=== PATIENT | male | born 1945 | race Caucasian/White ===

== ENCOUNTER → 2017-09-03 | Outpatient (CLI) | payer MEDICARE, OTHER ==
[~2017-09-03] MED LIST: AMARYL2 MG PO; ASPIR 8181 M1 PO; GLUCOPHAGE1000 MG PO; LEVOTHYROXIN0.075 MG PO; PRINIVIL40 MG PO
== END ==
LOC: M.ULTRA 09:30
DX: I65.23 Occlusion and stenosis of bilateral carotid arteries (principal); I25.10 Atherosclerotic heart disease of native coronary artery without angina pectoris; I25.5 Ischemic cardiomyopathy; J96.01 Acute respiratory failure with hypoxia; E87.1 Hypo-osmolality and hyponatremia; E44.1 Mild protein-calorie malnutrition; I13.0 Hypertensive heart and chronic kidney disease with heart failure and stage 1 through stage 4 chronic kidney disease, or unspecified chronic kidney disease; E11.22 Type 2 diabetes mellitus with diabetic chronic kidney disease; I50.23 Acute on chronic systolic (congestive) heart failure; N18.3 Chronic kidney disease, stage 3 (moderate); E03.9 Hypothyroidism, unspecified; Z95.1 Presence of aortocoronary bypass graft

== ENCOUNTER → 2019-08-29 | Outpatient (CLI) | payer MEDICARE, OTHER | LOC: M.MRI 08:13 | DX: M47.816 Spondylosis without myelopathy or radiculopathy, lumbar region (principal); M47.818 Spondylosis without myelopathy or radiculopathy, sacral and sacrococcygeal region; M51.36 Other intervertebral disc degeneration, lumbar region; M48.061 Spinal stenosis, lumbar region without neurogenic claudication; M51.26 Other intervertebral disc displacement, lumbar region ==

== ENCOUNTER → 2019-10-03 | Outpatient (CLI) | payer MEDICARE, OTHER | LOC: M.LAB 13:47 | DX: E87.5 Hyperkalemia (principal) ==

== ENCOUNTER → 2020-10-11 | Outpatient (CLI) | payer MEDICARE, OTHER ==
[~2020-10-11] VITALS: Ht 167.6 cm; Wt 77.1 kg
[~2020-10-11] MED LIST changes: +ADULT LOW DOSE81 MG PO; -ASPIR 8181 M1 PO; +COREG6.25 MG PO; +LIPITOR40 MG PO; +LISINOPRIL2.5 MG PO; +SLOW FE142 MG PO; +SYNTHROID100 MC1 PO; +UNICOMPLEX M TA1 TA1 PO; +VITAMIN D3 PO; +VITCB500GO PO
[2020-10-11 10:51] VITALS: BP 152/68
[2020-10-11 10:55] LABS: HEMATOCRIT 38.9 % (42.0-52.0); HEMOGLOBIN 12.7 gm/dL (14.0-18.0); MCH 30.1 pg (26.0-34.0); MCHC 32.7 g/dL (28.0-37.0); MCV 92.2 fL (80.0-100.0); RBC 4.22 mil/uL (4.50-6.00); RDW-CV 13.4 % (10.5-14.5); WBC 8.4 thou/uL (4.0-11.0)
[2020-10-11 11:04] LABS: CALCIUM 9.2 mg/dL (8.5-10.1); POTASSIUM 4.7 mmol/L (3.5-5.1)
[2020-10-11 11:09] LABS: TOTAL BILIRUBIN 0.6 mg/dL (<0.1-1.0); TOTAL PROTEIN 7.7 g/dL (6.4-8.2)
[2020-10-11 12:09] VITALS: BP 150/81
[2020-10-11 12:55] VITALS: BP 158/79
[2020-10-11 13:36] VITALS: BP 140/66
--- NOTE | 2020-10-11 15:47 | EKG ---
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: : 1945 Requested By: Albert Soto Order Number: [id number] Reading MD: Eric Henao Measurements Intervals [place] Rate: 84 P: -37 VA: 276 QRS: -36 QRSD: 123 T: 2 QT: 384 QTc: 454 Interpretive Statements Sinus rhythm Prolonged VA interval Right bundle branch block Anterolateral infarct, age indeterminate Compared to ECG 08/22/2015 18:13:10 First degree AV block now present Right bundle-branch block now present Myocardial infarct finding still present Electronically Signed On 10-11-2020 15:47:13 CDT by Eric Henao [email or web address] <ELECTRONICALLY SIGNED> By: Eric Henao MD, [facility] 10/11/20 1547 1359 1359 Eric Henao MD, [facility] /EPI
--- NOTE | 2020-10-11 17:25 | CARD ---
[address] [address] CARDIAC CATH REPORT Name: BREANN HERNANDEZ Room: [facility]#: [id number] Admission: 10/11/20 Attend Phys: Eric Henao MD, F Discharge: Date of : 41 Report #: [id number] THIS REPORT FOR: cc: Festus Levy Bradley L. DO Liston, Michael J. MD [facility] ~ APPROVED REPORT Study performed: 10/11/2020 11:23:15 Patient Status: Out-Patient Room #: Event Personnel: Ovidio Pereira RTR Monitor, Jeremias Esteves ScrubCharles Michael Science Technicians, Elizabet Gomez RN RN Exam: Dual-chamber ICD placement Indications: Primary prevention. The patient is a 74 year-old male with a history of Ischemic cardiomyopathy. Patient Info Last EF%: 32% Date: NYHA Heart Class: II Reason for implant: Primary prevention Intraoperative Conscious Sedation Sedation start time: 1130 Case end Time: 1152 Fentanyl 25 mcg Versed 1 mg Implanted Devices: Biotronik Acticor 7 BRT DX, model #895398, serial #[id number] dual-chamber pacing ICD generator. Biotronik Plexa ProMRI S DX 65/15, model #004199, serial #[id number] pacing defibrillator lead. Procedure After informed consent was obtained the area of the left chest was prepped and draped in sterile fashion. Local anesthesia was achieved with 1% lidocaine. Next after an incision was made over the left pectoralis area a device pocket was formed using electrocautery and blunt dissection. Next the left subclavian vein was accessed with a micropuncture kit. A 7 Icelandic tear-away introducer was advanced over the guidewire. A pacing defibrillator lead was then advanced to secure position within the right ventricular apex. The lead was actively fixed. Thresholds [place] [address] CARDIAC CATH REPORT Name: BREANN HERNANDEZ Room: [facility]#: [id number] Admission: 10/11/20 Attend Phys: Eric Henao MD, F Discharge: Date of : 41 Report #: [id number] satisfactory. After adequate slack was ensured the lead was then secured within the device pocket using the designated cuff and 0 silk suture. The device pocket was then flushed with antibiotic solution. Next the pacing defibrillator generator was attached to the lead and the lead and device placed within the device pocket. The device pocket was flushed with antibiotic solution. The deep tissues were closed with interrupted stitches of 2-0 Vicryl. The skin incision was then closed with a single subcuticular stitch of 4-0 Vicryl. Several Steri-Strips were then placed across the incision. A sterile Telfa dressing was then covered with a Tegaderm. The patient tolerated procedure well without complication. Complications The patient tolerated the procedure well and there were no complications associated with the procedure. Findings The sensed R wave was 20 mV. RV pacing impedance was 1.2 V at 0.40 ms. RV pacing impedance was 762 ohms. Conclusion 1. Ischemic cardiomyopathy. 2. Successful placement of a pacing ICD for primary prevention. Recommendations 1. Follow-up site check in 1 week. 2. Follow-up device interrogation in 1 to 2 months. <ELECTRONICALLY SIGNED> By: Albert Soto MD, FACC 10/11/20 1725 1725 1725Michael Kim Soto MD, FACC /INF
== END | disposition home or self-care (01) ==
LOC: M.CL 10:14
PROVIDERS: ATTEND Internal Medicine Cardiovascular Disease
DX: I25.5 Ischemic cardiomyopathy (principal); I42.0 Dilated cardiomyopathy; I49.9 Cardiac arrhythmia, unspecified; I20.0 Unstable angina; I10 Essential (primary) hypertension; E11.9 Type 2 diabetes mellitus without complications; Z95.1 Presence of aortocoronary bypass graft; Z98.890 Other specified postprocedural states; Z79.899 Other long term (current) drug therapy

== ENCOUNTER → 2021-04-11 | Outpatient (CLI) | payer MEDICARE, OTHER ==
[2021-04-11 09:30] LABS: CALCIUM 9.2 mg/dL (8.5-10.1); CREATININE 1.6 mg/dL (0.6-1.3); POTASSIUM 5.6 mmol/L (3.5-5.1)
== END ==
LOC: M.LAB 09:05
PROVIDERS: ATTEND Nurse Practitioner
DX: E87.5 Hyperkalemia (principal)

== ENCOUNTER → 2021-04-18 | Outpatient (CLI) | payer MEDICARE, OTHER ==
[2021-04-18 10:14] LABS: CALCIUM 8.8 mg/dL (8.5-10.1); CREATININE 1.7 mg/dL (0.6-1.3); POTASSIUM 4.5 mmol/L (3.5-5.1)
== END ==
LOC: M.LAB 09:54
PROVIDERS: ATTEND Internal Medicine Cardiovascular Disease
DX: E87.5 Hyperkalemia (principal); N18.9 Chronic kidney disease, unspecified

== ENCOUNTER 2021-06-03 17:55 | Inpatient (IN) | payer MEDICARE, OTHER ==
[~2021-06-03] VITALS: Ht 167.6 cm; Wt 78.2 kg
[2021-06-03 18:13] VITALS: BP 90/47
[2021-06-03] MEDS ORDERED: METOLAZONE 2.52.5 M1 PO (18:27)
[2021-06-03] MEDS ORDERED: DEMADEX20 MG PO (18:28)
[2021-06-03 21:54] LABS: HEMATOCRIT 37.9 % (42.0-52.0); HEMOGLOBIN 11.8 gm/dL (14.0-18.0); MCH 28.6 pg (26.0-34.0); MCV 92.1 fL (80.0-100.0); MPV 9.1 fl. (7.2-11.1); NUCLEATED RBCS 0 /100WBC; PLATELET COUNT* 222 thou/uL (150-400); RBC 4.11 mil/uL (4.50-6.00); RDW-CV 16.2 % (10.5-14.5); WBC 11.3 thou/uL (4.0-11.0)
[2021-06-03 22:03] LABS: ANION GAP 30 mmol/L (7-16); BUN 66 mg/dL (7-18); CHLORIDE 93 mmol/L (98-107); CO2 13 mmol/L (21-32); GLUCOSE 42 mg/dL (70-99); POTASSIUM 5.7 mmol/L (3.5-5.1); SODIUM 136 mmol/L (136-145)
[2021-06-03 22:07] LABS: APTT 35.8 Seconds (25.0-31.3); INR 1.4; PROTIME 14.2 Seconds (9.20-11.50)
[2021-06-03 22:14] LABS: ALBUMIN 3.5 g/dL (3.4-5.0); ALKALINE PHOSPHATASE 64 U/L (46-116); NT-PRO BRAIN NAT PEPTIDE > 35000 pg/mL (<300); SGOT 18 U/L (15-37); SGPT 19 U/L (30-65); TOTAL BILIRUBIN 0.9 mg/dL (<0.1-1.0); TOTAL PROTEIN 7.2 g/dL (6.4-8.2)
[2021-06-03 22:20] LABS: ABSOLUTE LYMPHOCYTES 0.2 thou/uL (0.8-5.3); ABSOLUTE MONOCYTES 0.3 thou/uL (0.0-1.2); ABSOLUTE NEUTROPHILS 10.7 thou/uL (1.6-8.1)
[2021-06-03 22:22] LABS: ANISOCYTOSIS Occasional; PLATELET ESTIMATE ADEQUATE
[2021-06-04] VITALS (128 sets, daily range): BP systolic 43–145; BP diastolic 22–80
[2021-06-04 02:43] LABS: BE -21.8 mmol/L (-2 to +3)
[2021-06-04 02:46] LABS: PCO2 18.9 mmHg (35.0-45.0); pH 7.107 (7.340-7.450)
[2021-06-04 07:14] LABS: HEMATOCRIT 36.1 % (42.0-52.0); MCH 28.3 pg (26.0-34.0); MCHC 30.6 g/dL (28.0-37.0); MCV 92.6 fL (80.0-100.0); MPV 9.5 fl. (7.2-11.1); RBC 3.9 mil/uL (4.50-6.00); RDW-CV 16.4 % (10.5-14.5)
[2021-06-04 07:25] LABS: ALBUMIN 3.1 g/dL (3.4-5.0); CALCIUM 8.3 mg/dL (8.5-10.1); CREATININE 6.1 mg/dL (0.6-1.3); MAGNESIUM 1.9 mg/dL (1.8-2.4); POTASSIUM 5.6 mmol/L (3.5-5.1); TOTAL BILIRUBIN 0.9 mg/dL (<0.1-1.0); TOTAL PROTEIN 6.5 g/dL (6.4-8.2)
[2021-06-04 09:40] LABS: BE -16.5 mmol/L (-2 to +3); PCO2 25.6 mmHg (35.0-45.0)
[2021-06-04 09:43] LABS: PO2 254.1 mmHg (75.0-100.0); pH 7.202 (7.340-7.450)
--- NOTE | 2021-06-04 09:58 | EKG ---
[place] [address] ELECTROCARDIOGRAM REPORT Name: BREANN HERNANDEZ Room: [address] ADM IN .R.#: [id number] Admission: 06/04/21 Attend Phys: Efrem Menon, Discharge: Date of : 41 Date of Service: 06/03/21 2144 Report #: [id number] THIS REPORT FOR: //name// [facility] ED Test Date: 2021-06-03 Test Time: 21:44:06 Pat Name: BREANN HERNANDEZ Department: Room: [facility] Gender: M Continuous Drier Helper: : 1945 Requested By: Ana Hanks Order Number: [id number] MD: Kenny Duran Measurements Intervals [place] Rate: 79 P: 115 MD: 193 QRS: -21 QRSD: 171 T: 154 QT: 459 QTc: 527 Interpretive Statements Sinus rhythm Ventricular premature complex Left bundle branch block Since the prior tracing, no significant interval change Electronically Signed On 06-04-2021 9:57:47 TANK CAR MECHANIC by Kenny Duran [email or web address] <ELECTRONICALLY SIGNED> By: Kenny Duran MD, [facility] 06/04/21 0957 Kenny Duran MD, [facility] /EPI
--- NOTE | 2021-06-04 10:02 | EKG ---
[place] [address] ELECTROCARDIOGRAM REPORT Name: BREANN HERNANDEZ Judah Room: [address] ADM IN M.R.#: [id number] Admission: 06/04/21 Attend Phys: Efrem Menon, Discharge: Date of : 41 Date of Service: 06/04/2107 Report #: [id number] THIS REPORT FOR: //name// [facility] Test Date: 2021-06-04 Test Time: 06:07:26 Pat Name: BREANN HERNANDEZ Department: Room: [address] Gender: M Client Relations Associate: : 1945 Requested By: Ana Hanks Order Number: [id number] Danni MD: Kenny Duran Measurements Intervals [place] Rate: 83 P: 61 SC: 224 QRS: 11 QRSD: 161 T: 136 QT: 440 QTc: 517 Interpretive Statements Sinus rhythm Rare PVCs are noted Left bundle branch block Since the prior tracing, no significant interval changes noted Electronically Signed On 06-04-2021 10:01:51 WAFER MOUNTER by Kenny Duran [email or web address] <ELECTRONICALLY SIGNED> By: Kenny Duran MD, [facility] 06/04/21 1001 0607 0607 Kenny Duran MD, [facility] /EPI
[2021-06-04 10:26] LABS: BE -18.2 mmol/L (-2 to +3); PCO2 24.3 mmHg (35.0-45.0)
[2021-06-04 10:28] LABS: PO2 169.9 mmHg (75.0-100.0); pH 7.168 (7.340-7.450)
[2021-06-04 11:00] LABS: INR 1.6; PROTIME 16.5 Seconds (9.20-11.50)
[2021-06-04 11:07] LABS: ABSOLUTE BASOPHILS 0.1 thou/uL (0.0-0.2); ABSOLUTE LYMPHOCYTES 1.2 thou/uL (0.8-5.3); ABSOLUTE NEUTROPHILS 14.4 thou/uL (1.6-8.1); BASOPHILS 0.6 %; HEMATOCRIT 37.4 % (42.0-52.0); HEMOGLOBIN 11.5 gm/dL (14.0-18.0); LYMPHOCYTES 7.2 %; MCH 28.7 pg (26.0-34.0); MCHC 30.9 g/dL (28.0-37.0); MCV 93.1 fL (80.0-100.0); MONOCYTES 6.1 %; MPV 9.5 fl. (7.2-11.1); NUCLEATED RBCS 0 /100WBC; PLATELET COUNT* 251 thou/uL (150-400); POLYS 86.1 %; RBC 4.02 mil/uL (4.50-6.00); RDW-CV 16.6 % (10.5-14.5); WBC 16.8 thou/uL (4.0-11.0)
[2021-06-04 11:26] LABS: CALCIUM 8.7 mg/dL (8.5-10.1); CREATININE 5.8 mg/dL (0.6-1.3); POTASSIUM 5.9 mmol/L (3.5-5.1)
[2021-06-04 11:27] LABS: BE -18.8 mmol/L (-2 to +3); PCO2 22.3 mmHg (35.0-45.0)
[2021-06-04 11:33] LABS: pH 7.168 (7.340-7.450)
[2021-06-04 11:34] LABS: PO2 201.1 mmHg (75.0-100.0)
[2021-06-04 12:10] LABS: ALBUMIN 3.9 g/dL (3.4-5.0); TOTAL PROTEIN 6.6 g/dL (6.4-8.2)
[2021-06-04 12:31] LABS: BE -20.1 mmol/L (-2 to +3); PCO2 21.1 mmHg (35.0-45.0)
[2021-06-04 12:36] LABS: PO2 166.4 mmHg (75.0-100.0)
[2021-06-04 13:42] LABS: BE -21.1 mmol/L (-2 to +3); PCO2 21.6 mmHg (35.0-45.0)
[2021-06-04 13:51] LABS: pH 7.107 (7.340-7.450)
[2021-06-04 13:52] LABS: PO2 204.3 mmHg (75.0-100.0)
[2021-06-04 15:26] LABS: BE -18.5 mmol/L (-2 to +3); PCO2 22.1 mmHg (35.0-45.0)
[2021-06-04 15:33] LABS: PO2 215.7 mmHg (75.0-100.0); pH 7.177 (7.340-7.450)
--- NOTE | 2021-06-04 15:53 | 2DMMODE ---
[place] [address] 2 D/M-MODE ECHOCARDIOGRAM Name: BREANN HERNANDEZ Room: [address] ADM IN [facility]#: [id number] Admission: 06/04/21 Attend Phys: Efrem Menon, Discharge: Date of : 41 Date of Service: 06/04/21 1553 Report #: [id number] THIS REPORT FOR: cc: Festus Levy,Kenny Rascon MD [facility] ~ APPROVED REPORT Study performed: 06/04/2021 14:48:10 EXAM: Limited 2D, Doppler, and color-flow Echocardiogram Patient Location: In-Patient Room #: 007 Status: routine BSA: 1.88 HR: 115 bpm BP: 133/65 mmHg Rhythm: NSR Other Information Study Quality: Good Indications Congestive Heart Failure Non STEMI Volumes Left Atrial Volume (Systole) LA ESV Index: 50.10 mL/m2 Tricuspid Valve RAP Estimate: 5.00 mmHg TR Peak Gr.: 31.47 mmHg RVSP: 36.00 mmHg PA Pressure: 36.00 mmHg Left Ventricle Left ventricle is moderately dilated. There is severe global hypokinesis of the left ventricle. There is normal left ventricular wall thickness. Left ventricular systolic function is severely decreased. LVEF is 20-25%. Right Ventricle Right ventricle is moderately dilated. Catheter is present in [place] [address] 2 D/M-MODE ECHOCARDIOGRAM Name: BREANN HERNANDEZ Room: [address] IN .R.#: [id number] Admission: 06/04/21 Attend Phys: Efrem Menon, Discharge: Date of : 41 Date of Service: 06/04/21 1553 Report #: [id number] [place] Left atrium is severely dilated. Right atrium is moderately dilated. Aortic Valve Mild aortic valve sclerosis. Trace aortic regurgitation. There is no aortic valvular stenosis. Mitral Valve The mitral valve is normal in structure. Moderate mitral regurgitation. No evidence of mitral valve stenosis. Tricuspid Valve The tricuspid valve is normal in structure. Mild tricuspid regurgitation. Mild pulmonary hypertension. Pulmonic Valve Pulmonic valve is not well visualized. Great Vessels The aortic root is normal in size. IVC is dilated and collapses <50% with inspiration. Pericardium There is no pericardial effusion. Left pleural effusion. <Conclusion> Left ventricle is moderately dilated. There is normal left ventricular wall thickness. Left ventricular systolic function is severely decreased. LVEF is 20-25%. Right ventricle is moderately dilated. Left atrium is severely dilated. Mild aortic valve sclerosis. Trace aortic regurgitation. There is no aortic valvular stenosis. The mitral valve is normal in structure. Moderate mitral regurgitation. The tricuspid valve is normal in structure. Mild tricuspid regurgitation. Mild pulmonary hypertension. IVC is dilated and collapses <50% [place] [address] 2 D/M-MODE ECHOCARDIOGRAM Name: MARYBREANN Room: [address] IN M.R.#: [id number] Admission: 06/04/21 Attend Phys: Efrem Menon, Discharge: Date of : 41 Date of Service: 06/04/211552 Report #: [id number] There is no pericardial effusion. There is severe global hypokinesis of the left ventricle. <ELECTRONICALLY SIGNED> By: Kenny Duran MD, FACC 06/04/211552 52 52 Kenny Duran MD, FACC /INF
[2021-06-04 17:18] LABS: ABSOLUTE BASOPHILS 0.1 thou/uL (0.0-0.2); ABSOLUTE LYMPHOCYTES 1.8 thou/uL (0.8-5.3); ABSOLUTE MONOCYTES 1.8 thou/uL (0.0-1.2); ABSOLUTE NEUTROPHILS 20.1 thou/uL (1.6-8.1); BASOPHILS 0.4 %; HEMATOCRIT 38.6 % (42.0-52.0); HEMOGLOBIN 12.1 gm/dL (14.0-18.0); LYMPHOCYTES 7.5 %; MCH 28.8 pg (26.0-34.0); MCHC 31.3 g/dL (28.0-37.0); MCV 91.9 fL (80.0-100.0); MONOCYTES 7.6 %; NUCLEATED RBCS 0 /100WBC; POLYS 84.5 %; RDW-CV 16.5 % (10.5-14.5); WBC 23.8 thou/uL (4.0-11.0)
[2021-06-04 17:25] LABS: PLATELET COUNT* 151 thou/uL (150-400)
[2021-06-04 17:30] LABS: ALBUMIN 3.5 g/dL (3.4-5.0); CALCIUM 8.1 mg/dL (8.5-10.1); MAGNESIUM 1.8 mg/dL (1.8-2.4); PHOSPHORUS* 7.3 mg/dL (2.5-4.9); TOTAL BILIRUBIN 1.4 mg/dL (<0.1-1.0); TOTAL PROTEIN 6.2 g/dL (6.4-8.2)
[2021-06-04 17:33] LABS: CREATININE 4.8 mg/dL (0.6-1.3); POTASSIUM 4.2 mmol/L (3.5-5.1)
[2021-06-04 19:54] LABS: HEMATOCRIT 38.2 % (42.0-52.0); HEMOGLOBIN 12.1 gm/dL (14.0-18.0); MCH 28.7 pg (26.0-34.0); MCHC 31.6 g/dL (28.0-37.0); MCV 90.8 fL (80.0-100.0); MPV 8.4 fl. (7.2-11.1); NUCLEATED RBCS 0 /100WBC; PLATELET COUNT* 171 thou/uL (150-400); RBC 4.21 mil/uL (4.50-6.00); RDW-CV 16.5 % (10.5-14.5); WBC 25.2 thou/uL (4.0-11.0)
[2021-06-04 20:00] LABS: CALCIUM 8.1 mg/dL (8.5-10.1); CREATININE 4.4 mg/dL (0.6-1.3); MAGNESIUM 1.7 mg/dL (1.8-2.4); PHOSPHORUS* 6.6 mg/dL (2.5-4.9); POTASSIUM 4.1 mmol/L (3.5-5.1)
[2021-06-05] VITALS (70 sets, daily range): BP systolic 31–148; BP diastolic 24–76
[2021-06-05 04:38] LABS: HEMATOCRIT 30.4 % (42.0-52.0); MCH 28.8 pg (26.0-34.0); MCHC 32.3 g/dL (28.0-37.0); MCV 89.2 fL (80.0-100.0); MPV 7.7 fl. (7.2-11.1); NUCLEATED RBCS 0 /100WBC; PLATELET COUNT* 127 thou/uL (150-400); RBC 3.41 mil/uL (4.50-6.00); RDW-CV 15.9 % (10.5-14.5)
[2021-06-05 04:50] LABS: HEMOGLOBIN 9.8 gm/dL (14.0-18.0)
[2021-06-05 05:14] LABS: APTT 61.7 Seconds (25.0-31.3); PROTIME 24.5 Seconds (9.20-11.50)
[2021-06-05 05:53] LABS: ALBUMIN 2.4 g/dL (3.4-5.0); TOTAL PROTEIN 4.1 g/dL (6.4-8.2)
[2021-06-05 06:12] LABS: CREATININE 2.4 mg/dL (0.6-1.3)
[2021-06-05 06:13] LABS: POTASSIUM 2.8 mmol/L (3.5-5.1)
[2021-06-05 06:14] LABS: CALCIUM 5.6 mg/dL (8.5-10.1)
[2021-06-05 06:16] LABS: INR 2.5
[2021-06-05 06:17] LABS: ABSOLUTE LYMPHOCYTES 1.8 thou/uL (0.8-5.3); ABSOLUTE MONOCYTES 1.4 thou/uL (0.0-1.2); ABSOLUTE NEUTROPHILS 16.8 thou/uL (1.6-8.1)
[2021-06-05 06:20] LABS: ANISOCYTOSIS 1+; BURR CELLS 1+; PLATELET ESTIMATE ADEQUATE
[2021-06-05 07:06] LABS: ALBUMIN 3.6 g/dL (3.4-5.0); CREATININE 3.3 mg/dL (0.6-1.3); TOTAL BILIRUBIN 1.6 mg/dL (<0.1-1.0); TOTAL PROTEIN 6.3 g/dL (6.4-8.2)
[2021-06-05 07:07] LABS: CALCIUM 8.2 mg/dL (8.5-10.1); POTASSIUM 4.2 mmol/L (3.5-5.1)
[2021-06-05 08:01] LABS: BE -11.4 mmol/L (-2 to +3); PCO2 21.9 mmHg (35.0-45.0); pH 7.354 (7.340-7.450)
[2021-06-05 08:03] LABS: PO2 158.3 mmHg (75.0-100.0)
--- NOTE | 2021-06-05 10:23 | CON ---
[address] [address] CONSULTATION Name: BREANN HERNANDEZ Room: [address] ADM IN M.R.#: [id number] Admission: 06/04/21 Attend Phys: Efrem Menon MD Discharge: Date of : 41 Report #: [id number] THIS REPORT FOR: cc: Festus Levy Bradley L. DO Arakelov, Alexandr V. MD ~ DATE OF CONSULTATION: 06/04/2021 REQUESTING PHYSICIAN: Efrem Menon MD REASON FOR CONSULTATION: Severe metabolic acidosis, acute kidney injury. HISTORY OF PRESENT ILLNESS: The patient is a 75-year-old gentleman with medical history significant for severe coronary artery disease with severe ischemic cardiomyopathy. His last left ventricular ejection fraction six months ago was 35, now it is 15%. He does have a history of ICD implantation, but despite of that, his ejection fraction is dropping. He has been seeing Cardiology very closely. Medications have been adjusted, but again no response from the heart standpoint. He presents with respiratory failure, severely acidotic, hypotensive and he is in shock. I am not sure if due to cardiogenic shock or septic shock, not making any urine and he has severe metabolic acidosis. I was consulted. PAST MEDICAL HISTORY: Significant for: 1. Coronary artery disease. 2. Ischemic cardiomyopathy with left ventricular ejection fraction 15%. 3. Placement of AICD. 4. Diabetes mellitus type 2. 5. Hypertension. FAMILY HISTORY: No history of renal disease. SOCIAL HISTORY: No current tobacco or alcohol use. MEDICATIONS: Reviewed. REVIEW OF SYSTEMS: Unobtainable as he is intubated. PHYSICAL EXAMINATION: GENERAL: He is in intensive care unit, intubated on very high dose of pressors. VITAL SIGNS: Blood pressure is still very low. NECK: Supple. LUNGS: With some coarse breath sounds. CARDIOVASCULAR: Very distant heart tones. ABDOMEN: [place] [address] CONSULTATION Name: BREANN HERNANDEZ Room: [address]#: [id number] Admission: 06/04/21 Attend Phys: Efrem Menon MD Discharge: Date of : 41 Report #: [id number] LABORATORY DATA: Revealed his blood gas ABG: pH of 1.68, pCO2 is 22, pO2 is 200. Serum sodium is 140, potassium 5.9, chloride 93, carbon dioxide 11, BUN 67, creatinine 5.8. ASSESSMENT: 1. Acute kidney injury, anuric, most likely due to underperfusion of the kidneys with a shock. Seems to be most likely cardiogenic shock, but cannot rule out septic shock as well. 2. Multiorgan failure. 3. Severe cardiomyopathy. 4. Severe metabolic acidosis. 5. Hyperkalemia. PLAN: He is on bicarbonate drip now. We will try to do CVVHD. Discussed with Dr. Connolly and with ICU nurses. Prognosis is very poor. Forty minutes spent on this consultation. <ELECTRONICALLY SIGNED> By: Tano Hernandez MD 06/05/21 1023 1112 1307Alexsolitario Hernandez MD /nt
[2021-06-05 12:15] LABS: CALCIUM 7.8 mg/dL (8.5-10.1); CREATININE 2.9 mg/dL (0.6-1.3); MAGNESIUM 1.7 mg/dL (1.8-2.4); PHOSPHORUS* 4.5 mg/dL (2.5-4.9); POTASSIUM 4.3 mmol/L (3.5-5.1)
[2021-06-05 13:15] LABS: PCO2 21.5 mmHg (35.0-45.0)
[2021-06-05 13:20] LABS: PO2 203.4 mmHg (75.0-100.0); pH 7.296 (7.340-7.450)
--- NOTE | 2021-06-05 14:11 | EKG ---
[place] [address] ELECTROCARDIOGRAM REPORT Name: BREANN HERNANDEZ Room: [address] ADM IN .R.#: [id number] Admission: 06/04/21 Attend Phys: Efrem Menon, Discharge: Date of : 41 Date of Service: 06/03/21 1820 Report #: [id number] THIS REPORT FOR: //name// [facility] ED Test Date: 2021-06-03 Test Time: 18:20:09 Pat Name: BREANN HERNANDEZ Department: Room: [address] Gender: M Director Banking: : 1945 Requested By: Ana Hanks Order Number: [id number] Danni MD: Kenny Duran Measurements Intervals [place] Rate: 98 P: 47 [place]: 226 QRS: 32 QRSD: 148 T: 181 QT: 415 QTc: 530 Interpretive Statements Sinus rhythm Prolonged [place] interval Left bundle branch block Baseline wander in lead(s) V1 Compared to ECG 10/11/2020 13:59:03 Ventricular premature complex(es) now present Left bundle branch block is noted Electronically Signed On 06-05-2021 14:11:06 MEDICAL TRANSCRIPTION EDITOR by Kenny Duran [email or web address] <ELECTRONICALLY SIGNED> By: Kenny Duran MD, FACC 06/05/21 1411 19 19 Kenny Duran MD, FAC /EPI
[2021-06-05 14:25] LABS: pH 7.352 (7.340-7.450)
[2021-06-05 14:27] LABS: PO2 262.5 mmHg (75.0-100.0)
[2021-06-05 16:46] LABS: ABSOLUTE LYMPHOCYTES 0.6 thou/uL (0.8-5.3); ABSOLUTE MONOCYTES 0.6 thou/uL (0.0-1.2); ABSOLUTE NEUTROPHILS 15.4 thou/uL (1.6-8.1); BASOPHILS 0.2 %; EOSINOPHILS 0.1 %; HEMATOCRIT 37.8 % (42.0-52.0); LYMPHOCYTES 3.4 %; MCH 28.7 pg (26.0-34.0); MCHC 32.4 g/dL (28.0-37.0); MCV 88.7 fL (80.0-100.0); MONOCYTES 3.5 %; MPV 7.5 fl. (7.2-11.1); NUCLEATED RBCS 0 /100WBC; PLATELET COUNT* 117 thou/uL (150-400); POLYS 92.8 %; RBC 4.26 mil/uL (4.50-6.00); RDW-CV 15.8 % (10.5-14.5); WBC 16.6 thou/uL (4.0-11.0)
[2021-06-05 16:47] LABS: HEMOGLOBIN 12.2 gm/dL (14.0-18.0)
[2021-06-05 17:02] LABS: APTT 47.3 Seconds (25.0-31.3); INR 2.8; PROTIME 27.6 Seconds (9.20-11.50)
--- NOTE | 2021-06-06 11:31 | CON ---
[address] [address] CONSULTATION Name: BREANN HERNANDEZ Room: [address] IN M.R.#: [id number] Admission: 06/04/21 Attend Phys: Efrem Menon MD Discharge: 06/05/21 Date of : 41 Report #: [id number] THIS REPORT FOR: cc: Festus Levy Bradley L. DO Pervez, Adeel MD ~ DATE OF CONSULTATION: 06/04/2021 Consult has been requested by Dr. Parry. INDICATION FOR CONSULTATION: Acute hypoxemic respiratory failure. HISTORY OF PRESENT ILLNESS: This is a 75-year-old gentleman, history includes a history of coronary artery disease, congestive heart failure with a markedly reduced left ventricular ejection fraction. His baseline creatinine is around 1.7. He has recently been having increasing fluid overload and has had an increase in diuresis recently reported. The patient is reported to have had no urine output for the last 2-3 days and has now presented with respiratory distress. He is already endotracheally intubated and is on high doses of pressors and therefore, he is unable to provide a further history or review of systems. The patient is profoundly acidotic. We are able to maintain O2 saturation. There is only mild increase in pulmonary vascular congestion on his chest x-rays and only small infiltrates noted. He is in acute renal failure and despite administration of IV fluids, remains anuric. PAST MEDICAL HISTORY: Coronary artery disease, reported to have had a severely depressed left ventricular ejection fraction, carotid artery disease, status post CABG, hyperlipidemia, hyperkalemia, status post pacemaker placement. SOCIAL HISTORY: Lifetime nonsmoker. No known history of heavy alcohol use or illegal drug use. It is not known to me as to whether he was vaccinated for COVID. FAMILY HISTORY: No pertinent family history. ALLERGIES: No known drug allergies. CURRENT MEDICATIONS: List in [facility] reviewed. HOME MEDICATIONS: List also in [facility] reviewed. PHYSICAL EXAMINATION: GENERAL: Initially, the patient was tachypneic, but responding only to painful stimuli on a Versed infusion, subsequently added fentanyl. He is now breathing with the ventilator and a tidal volume of 600 with an AC rate of 22, [place] [address] CONSULTATION Name: BREANN HERNANDEZ Room: [address]#: [id number] Admission: 06/04/21 Attend Phys: Efrem Menon MD Discharge: 06/05/21 Date of : 41 Report #: [id number] 100% and PEEP is 5. His O2 saturation is not reading correctly on the monitor. Arterial blood gases, he has a pO2 of up to 254 with 100% O2 saturation. His blood pressure has been low, at times as low as 60 systolic failure, we are currently maintaining blood pressure with multiple pressors. He is tachycardic, heart rate is around 120. HEENT: Head is normocephalic and atraumatic. Endotracheal tube is in good position. NECK: Does not show raised JVP, asymmetry, mass or lymph nodes. CHEST: Symmetrical expansion on inspection and palpation. On auscultation, chest is essentially clear. HEART: Regular. There is no murmur. ABDOMEN: Soft and nontender. EXTREMITIES: Lower extremities do show 2+ edema bilaterally. There is no calf tenderness. SKIN: Dry and intact. NEUROLOGIC: Moves all extremities to pain. No focal deficit identified. Chest x-rays are as discussed above. LABORATORY DATA: In [facility] reviewed. We performed multiple arterial blood gases as well. ASSESSMENT AND PLAN: 1. Acute hypoxemic respiratory failure. At this time, we are maintaining O2 saturation. He does appear total body fluid overloaded; however, due to severe hypotension, I did give him some fluids and albumin. We will monitor his arterial blood gases for O2 saturation as his O2 saturation on the monitor is not reading correctly due to vasoconstriction. For now, we are doing an arterial blood gases q.1 hour. We will use fentanyl first and Versed second for sedation as needed. 2. Severe shock. He is currently on maximum dose of Levophed as well as phenylephrine and vasopressin. We will also push multiple amps of sodium bicarbonate as well as giving him calcium chloride. We are barely maintaining blood pressure at this time. Considering severe shock, I will also go ahead and give him hydrocortisone. 3. Coronary artery disease/acute on chronic systolic congestive heart failure. He is overall total body fluid overloaded. Considering that he is severely hypotensive despite multiple pressors, we are continuing with IV fluids as long as we are able to maintain O2 saturation, however, unfortunately, the patient's prognosis appears to be poor. 4. Acute on chronic renal failure. Baseline creatinine of 1.7 with severe metabolic acidosis, multiple amps of bicarbonate administered. He is on a bicarbonate infusion now. He has had a dialysis catheter placed. I understand that the Renal Service is considering CRRT. I am not certain if he is stable to [address] [address] CONSULTATION Name: BREANN HERNANDEZ Room: [address] IN M.R.#: [id number] Admission: 06/04/21 Attend Phys: Efrem Menon MD Discharge: 06/05/21 Date of : 41 Report #: [id number] be able to tolerate CRRT at this time due to severe hypotension. He would benefit if he can maintain hemodynamic stability on CRRT. Hope that he stabilizes enough to undergo the procedure. 5. Pulmonary infiltrates/possible sepsis. Only small infiltrates noted on the chest x-ray, there is no definite sign of sepsis. However, considering his severe shock, for now, I will treat him with broad-spectrum antibiotics and therefore Zosyn and linezolid are ordered. 6. Acute myocardial infarction. Troponin I is consistent with this at 1401 high sensitivity, Cardiology Service is on the case. He is on IV heparin. Repeat PTT is pending at this time and last one was high. 7. Gastrointestinal prophylaxis/possible minor gastrointestinal bleed. There is a small amount of blood in his OG. We will watch this very closely. Note that he is on IV heparin. At first, let us suspect that he may have minor bleeding secondary to OG insertion trauma. I will give him Protonix, watch H and H closely. 8. Hypoglycemia. Glucose is noted to be markedly decreased initially up into the 20s. He is getting D5 with the bicarbonate infusion now. Watch blood glucoses closely. Last glucose has come up to 94. 9. Evaluation for thromboembolic phenomena. I also recommend obtaining venous Dopplers. The patient is critically ill at this time. Total time spent providing critical care to this patient today exceeds 1 hour. <ELECTRONICALLY SIGNED> By: Jordan Connolly MD 06/06/21 1131 0956 1032AMD nuno Le
[2021-06-06 22:06] LABS: HEPATITIS B SURFACE AG Negative (Negative)
== END 2021-06-05 22:30 | DRG 871 ==
LOC: M.ERS 17:55 → M.ICU 06-04 00:45 → M.TBA-ER 06-04 00:45 → M.ICU 06-04 01:40
PROVIDERS: Internal Medicine; Internal Medicine Critical Care Medicine; Internal Medicine Nephrology; Personal Emergency Response Attendant; ADMIT Internal Medicine; ATTEND Internal Medicine
PROC: 02HV33Z Insertion of Infusion Device into Superior Vena Cava, Percutaneous Approach (ICD-10-PCS; principal; 2021-06-04)
PROC: 0BH17EZ Insertion of Endotracheal Airway into Trachea, Via Natural or Artificial Opening (ICD-10-PCS; principal; 2021-06-04)
PROC: B548ZZA Ultrasonography of Superior Vena Cava, Guidance (ICD-10-PCS; principal; 2021-06-04)
PROC: 5A1945Z Respiratory Ventilation, 24-96 Consecutive Hours (ICD-10-PCS; principal; 2021-06-04)
PROC: 04HY32Z Insertion of Monitoring Device into Lower Artery, Percutaneous Approach (ICD-10-PCS; principal; 2021-06-04)
DX: A41.9 Sepsis, unspecified organism (principal); I21.A1 Myocardial infarction type 2; I50.23 Acute on chronic systolic (congestive) heart failure; J69.0 Pneumonitis due to inhalation of food and vomit; J80 Acute respiratory distress syndrome; R65.21 Severe sepsis with septic shock; K72.00 Acute and subacute hepatic failure without coma; N17.0 Acute kidney failure with tubular necrosis; I13.0 Hypertensive heart and chronic kidney disease with heart failure and stage 1 through stage 4 chronic kidney disease, or unspecified chronic kidney disease; Z20.822 Contact with and (suspected) exposure to COVID-19; N18.9 Chronic kidney disease, unspecified; I25.10 Atherosclerotic heart disease of native coronary artery without angina pectoris; I25.5 Ischemic cardiomyopathy; E11.649 Type 2 diabetes mellitus with hypoglycemia without coma; E87.5 Hyperkalemia; I65.23 Occlusion and stenosis of bilateral carotid arteries; I34.0 Nonrheumatic mitral (valve) insufficiency; Z66 Do not resuscitate; E11.22 Type 2 diabetes mellitus with diabetic chronic kidney disease; E11.65 Type 2 diabetes mellitus with hyperglycemia; R57.0 Cardiogenic shock; I95.9 Hypotension, unspecified; Z95.1 Presence of aortocoronary bypass graft; Z95.810 Presence of automatic (implantable) cardiac defibrillator; Z79.82 Long term (current) use of aspirin; Z79.899 Other long term (current) drug therapy